=== PATIENT | female | born 1965 | race Two or more races ===

== ENCOUNTER 2018-08-29 08:18 | Outpatient (CLI) | payer OTHER | END 2018-08-29 08:41 | disposition home or self-care (01) | LOC: NUCLEAR 08:18 | DX: C50.811 Malignant neoplasm of overlapping sites of right female breast (principal) | CPT/HCPCS: A9503; 78306 ==

== ENCOUNTER 2021-07-07 08:00 | Outpatient (CLI) | payer OTHER | END 2021-07-07 08:30 | disposition home or self-care (01) | LOC: PPH VACUNA 08:00 | PROVIDERS: ATTEND Emergency Medicine Pediatric Emergency Medicine | DX: Z23 Encounter for immunization (principal) ==